=== PATIENT | female | born 1965 | race Caucasian/White ===

== ENCOUNTER 2018-11-11 20:09 | Emergency (ER) | payer BC ==
[~2018-11-11] VITALS: Ht 160 cm; Wt 68.0 kg
--- NOTE | 2018-11-11 21:15 | NUR ---
Patient discharged to home in stable conditon. Written and verbal after care instructions given. Patient verbalizes understanding of instructions. Walked out of ER with no distress noted
[2018-11-11 21:16] VITALS: BP 138/77
== END 2018-11-11 21:17 | disposition home or self-care (01) ==
LOC: ER 20:13
DX: I80.02 Phlebitis and thrombophlebitis of superficial vessels of left lower extremity (principal); Z88.2 Allergy status to sulfonamides
CPT/HCPCS: A4663